=== PATIENT | female | born 1945 | race Caucasian/White ===

== ENCOUNTER 2022-11-01 09:51 | Emergency (ER) | payer MEDICARE, MEDICAID, SELFPAY ==
[2022-11-01 09:52] VITALS: PULSE 84; RESP 14; TEMP 35.8; O2SAT 95
[2022-11-01 09:55] VITALS: BP 136/69
--- NOTE | 2022-11-01 10:28 | RAD_ITS ---
STUDY: X-RAY CHEST REASON FOR EXAM: Female, 77 years old. Chest pain TECHNIQUE: Single AP portable view of the chest. COMPARISON: None. FINDINGS: EKG electrodes are seen. The lungs are clear and expanded. There is no demonstrated pleural abnormality. Normal size heart. Normal mediastinum and aisha. Normal visualized pulmonary arteries. There is atherosclerotic calcification of the aortic arch with tortuosity. There are degenerative changes of the visualized thoracic spine. Normal visualized ribs, clavicles, and shoulders. There is no demonstrated abnormality of the visualized soft tissue structures of the upper abdomen. RAD/Chest 1 View (Portable) IMPRESSION: No acute abnormality is seen. Electronically Signed: Camilo Broussard MD at 11:00 EDT ,
[2022-11-01 10:29] LABS: Absolute Lymphocyte Count 1.27 X10^3/uL (0.83-4.51); Absolute Neutrophil Count 3.9 X10^3/uL (2.0-7.7); Basophil# 0.05 X10^3/uL; Basophil% 0.8 % (0-1); Eosinophil# 0.43 X10^3/uL; Eosinophils% 7.1 % (0-5); Hematocrit 42.9 % (37-47); Hemoglobin 13.7 g/dL (12.0-15.0); Lymphocyte # 1.27 X10^3/ul (0.83-4.51); Lymphocyte % 20.9 % (19-41); Mean Corp Hgb Conc 31.9 g/dL (32-36); Mean Corpuscular Hgb 28.3 pg (27.0-32.0); Mean Corpuscular Volume 88.6 fL (81-99); Mean Platelet Vol. 9.1 fl (6.2-12.0); Monocyte# 0.48 X10^3/uL; Monocyte% 7.9 % (0-10); NRBC Flagged by Analyzer 0 % (0-5); Neutrophil # 3.85 X10^3/uL (2.7-7.7); Neutrophil % 63.1 % (47-70); Platelet Count 266 K/mm3 (150-450); RBC Distribution Width SD 48.7 fl (35.1-43.9); Red Blood Count 4.84 M/mm3 (4.2-5.4); White Blood Count 6.1 K/mm3 (4.4-11.0)
--- NOTE | 2022-11-01 10:30 | EKG12_ITS ---
Test Reason : Blood Pressure : / mmHG Vent. Rate : 068 BPM Atrial Rate : 068 BPM P-R Int : 164 ms QRS Dur : 078 ms QT Int : 412 ms P-R-T Axes : 002 068 050 degrees QTc Int : 438 ms Normal sinus rhythm Low voltage QRS Borderline ECG Confirmed by SOLANGE ALVARADO, HONEY ([id number]), videotape editor IVETH SAUCEDO ([id number]) on 11/03/2022 1:08:40 PM Referred By: MAGNOLIA Confirmed By:CALISTA NARVAEZ MD
[2022-11-01 10:51] LABS: Anion Gap 6 (5-15); BUN 18 mg/dL (7-18); BUN/Creat Ratio 12.2 RATIO (10-20); Calcium,Total 8.9 mg/dL (8.5-10.1); Chloride 111 mmol/L (98-107); Creatinine, Serum 1.47 mg/dL (0.55-1.02); EST Glomerular Filtration Rate 37 mL/min (>60); Est Glom Filt Rate - Afr Amer 44 mL/min (>60); Glucose 163 mg/dL (74-106); Potassium 3.6 mmol/L (3.5-5.1); Sodium Level 141 mmol/L (136-145); Troponin-I HS (w/2H Reflex) 7 pg/mL (3.0-54.0)
[2022-11-01 12:28] LABS: Reflex Troponin-HS? (from REC) Y
[2022-11-01 13:03] LABS: Troponin-I HS 11 pg/mL (3.0-54.0)
[2022-11-01 13:18] VITALS: BP 130/75; PULSE 63; RESP 18; O2SAT 98; BMI 62.1
--- NOTE | 2022-11-01 13:37 | EDS_ITS ---
HPI History of Present Illness Chief Complaint: Chest Pain Informant: patient Narrative Narrative: Patient is a 77-year-old female with history of hypothyroid and hypertension presenting with chest pain. Patient states she was eating breakfast when she felt a discomfort in her chest. She states that she thought she swallowed wrong but did not actually swallow anything that she thinks got stuck. She checked her watch which showed her heart rate was 102 which is high for her. This concerned her. She then checked her blood pressure which was elevated at 150/82. She states she just did not feel right was uncomfortable in her left jaw. She took 9 x 81 mg aspirin and decided call 911. She notes she felt some fatigue. She states her symptoms have since resolved and she is feeling better. She notes she also had a recent cardiac work-up including stress test and echo as she is been having these vague near syncope episodes. Her work-up was normal. She denies any other complaints or concerns at this time. She denies any shortness of breath or difficulty breathing. Denies any nausea or vomiting. She denies any new swelling of her legs. [facility] Medical History Hypertension Home Medications levothyroxine 100 mcg tablet (Euthyrox) 100 mcg PO DAILY 11/01/22 [History Last Taken Unknown] losartan 100 mg tablet 100 mg PO DAILY 11/01/22 [History Last Taken Unknown] zinc 25 mg tablet 25 mg PO DAILY 11/01/22 [History Last Taken Unknown] Allergy/AdvReac Type Severity Reaction Status Date / Time coconut Allergy Severe Anaphylaxis Verified 11/01/22 10:02 erythromycin base Allergy Intermediate Rash Verified 11/01/22 10:02 hay Allergy Mild headache Uncoded 11/01/22 10:02 Social History Smoking Status: Never smoker ROS ROS ED Constitutional Constitutional ED: Denies chills or fever(s) Eyes Eyes: Denies blurry vision ENT ENT ED: Denies rhinorrhea or sore throat Cardiovascular Cardiovascular: Reports as per HPI and chest pain Gastrointestinal Gastrointestinal: Denies abdominal pain, nausea or vomiting Musculoskeletal Musculoskeletal: Denies arthralgias or myalgias Integumentary Denies rash Neurologic Neurologic: Denies headache(s), paresthesias or weakness Psychiatric Psychiatric: Reports anxiety; Denies depression Hematologic/Lymphatic Hematologic/Lymphatic: Denies easy bleeding or easy bruising EXAM Physical Exam Const Vital Signs: 11/01/22 09:52 11/01/22 09:55 11/01/22 10:25 Temperature 96.4 F L Temperature Source Temporal Pulse Rate 84 Respiratory Rate 14 Blood Pressure 136/69 H Blood Pressure Mean 91 Pulse Ox 95 Oxygen Delivery Method Room Air Room Air 11/01/22 13:18 11/01/22 13:51 Temperature Temperature Source Pulse Rate 63 88 Respiratory Rate 18 16 Blood Pressure 130/75 H 130/76 H Blood Pressure Mean 93 Pulse Ox 98 Oxygen Delivery Method Room Air Positive well nourished, well developed and obese General Appearance ED: well developed and NAD Nutritional Appearance: obese HEENT Reports moist mucous membranes Eyes PERRL Neck supple and no JVD Chest Wall inspection of chest normal and palpation of chest normal Resp normal respiratory effort and clear to auscultation bilaterally Cardio regular rate, regular rhythm and no murmurs Peripheral Pulses: pulses 2+ throughout GI normal to inspection, nondistended, normoactive bowel sounds and soft to palpation Extremity normal to inspection General Extremety ED: Negative for edema General Extremity: Negative for edema Neuro oriented x3 Motor Exam: Negative for general weakness Psych mental status grossly normal Mood & Affect: anxious Skin no rashes or lesions noted Heart Score History: Slightly/Non-Suspicious ECG: Normal Age: >/= 65 years Risk Factors: 1 or 2 Risk Factors Troponin: </= Normal Limit Score: 3 MDM MDM MDM Narrative Medical decision making narrative: Patient is evaluated for an episode of chest pain. EMS report is reviewed. Patient normal vital signs for EMS. Her symptoms have resolved in the emergency room. Her vital signs are normal. Cardiac work-up including chest x-ray (1 view reviewed by myself) which was normal, high since he troponin x2 as well as EKG are all unremarkable and not consistent with ACS. Overall patient is well-appearing. Exam does not sound like pneumonia or pulmonary emboli and I do not think work-up for that is indicated. CBC is normal. No signs of anemia consistent with-heart failure/symptomatic anemia. Patient is clinically does not appear fluid overloaded and I do not think this is a heart failure picture. She does have an elevation of her creatinine of 1.47 however this appears to be baseline and her creatinine in September with her PCP was 1.5. In addition patient had a normal stress test on 10/13 as well as largely normal echo with LVEF of 84%. She did have some aortic stenosis on that echo. I feel the patient can be safely discharged home with outpatient follow-up. She is agreeable this plan of care. Is given return precautions. Discharged home in improved and stable condition. History & Record Review Additional record(s) reviewed:: Prior outpatient record (Prior work-up and labs on patient's MyChart) Lab Data Labs: Laboratory Results - last 24 hr 11/01/22 11/01/22 10:20 12:35 WBC 6.1 RBC 4.84 Hgb 13.7 Hct 42.9 MCV 88.6 MCH 28.3 MCHC 31.9 L RDW Std Deviation 48.7 H RDW Coeff of Abdiaziz 15.0 H Plt Count 266 MPV 9.1 Immature Gran % (Auto) 0.200 Neut % (Auto) 63.1 Lymph % (Auto) 20.9 [place] % (Auto) 7.9 Eos % (Auto) 7.1 H Baso % (Auto) 0.8 Absolute Neuts (auto) 3.9 Absolute Lymphs (auto) 1.27 Nucleated RBC % 0 Sodium 141 Potassium 3.6 Chloride 111 H Carbon Dioxide 24.0 Anion Gap 6 BUN 18 Creatinine 1.47 H Est GFR (MDRD) Af Amer 44 L Est GFR (MDRD) Non-Af 37 L BUN/Creatinine Ratio 12.2 Glucose 163 H Calcium 8.9 Troponin I High Sens 7 11 Radiography Diagnostic Testing: Clinical Impression(s) from Imaging Studies Chest X-Ray 11/01/22 10:28 IMPRESSION: No acute abnormality is seen. Electronically Signed: Camilo Broussard MD at 11:00 EDT , Rhythm Strip Rhythm Strip: Sinus Rhythm Rate: 68 Ectopy: None EKG Initial EKG: Attestation: I personally reviewed and interpreted this EKG as follows: Interpretation: Sinus Rhythm Comments: Normal sinus rhythm at a rate of 68 bpm Normal axis Normal intervals Normal ST segments Discharge Plan Triage Chief Complaint: Chest Pain ED Provider: Radha Hooper Dx/Rx/DC Orders Clinical Impression: Chest pain of unknown etiology Instructions: ED Chest Pain, Uncertain Cause Prescriptions: No Action losartan 100 mg tablet 100 mg PO DAILY levothyroxine [Euthyrox] 100 mcg tablet 100 mcg PO DAILY zinc 25 mg tablet 25 mg PO DAILY Primary Care Provider: Katherine Jhaveri NP Referrals: Katherine Jhaveri [employer] GUARD, [employer] GUARD-C [Primary Care Provider] - Activity Restrictions/Additional Instructions: Your work-up for your chest pain today was largely normal. The exact cause is not clear but at this time I do think it safe for you to go home. Please continue to follow-up outpatient with your primary care doctor. Disposition Disposition: Home, Self Care Discharge Date/Time: 11/01/22 13:51
[2022-11-01 13:51] VITALS: BP 130/76; PULSE 88; RESP 16
== END 2022-11-01 13:51 | disposition home or self-care (01) ==
PROVIDERS: Emergency Provider Emergency Medicine; PCP Internal Medicine; Visit Provider Emergency Medicine
DX: R07.9 Chest pain, unspecified (principal); I35.0 Nonrheumatic aortic (valve) stenosis; I10 Essential (primary) hypertension; E03.9 Hypothyroidism, unspecified; E66.9 Obesity, unspecified; Z79.890 Hormone replacement therapy; Z79.899 Other long term (current) drug therapy
CPT/HCPCS: 71045; 80048; 84484; 85025; 93005; 99285; A4216

== ENCOUNTER 2024-05-21 17:52 | Emergency (ER) | payer MEDICARE, MEDICAID, SELFPAY ==
[2024-05-21 17:53] VITALS: BP 141/70; PULSE 62; RESP 22; TEMP 36.6; O2SAT 97
[2024-05-21 20:15] VITALS: O2SAT 97
--- NOTE | 2024-05-21 20:15 | CT_ITS ---
PROCEDURE: CT abdomen and pelvis with IV contrast REASON FOR EXAM: Pain, trauma TECHNIQUE: Multiple contiguous axial images through the abdomen and pelvis were obtained after the administration of intravenous contrast. Two-dimensional coronal and sagittal reformatted images were reconstructed. Low-dose imaging technique was utilized. COMPARISON: None. FINDINGS: Mild bibasilar scarring/atelectasis. Mild cardiomegaly. Liver, spleen, and adrenal glands are intact. Cholelithiasis without secondary signs of acute cholecystitis or biliary ductal dilation. Kidneys enhance symmetrically. No suspicious renal mass, calculi or hydronephrosis. Urinary bladder is intact. Distal colonic diverticulosis. No bowel obstruction or significant mesenteric inflammation. Subtle area of focal bowel wall thickening at the distal transverse colon (axial images 50-53, coronal image 50). Adjacent mildly enlarged presumed lymph node measuring up to 16 mm. Normal appendix. No pelvic free fluid. No free air. Calcified nonaneurysmal abdominal aorta. No other significant adenopathy. Superficial soft tissues are intact. No acute osseous abnormality. Multilevel degenerative changes of the spine. Mild bilateral hip osteoarthritis. CT/Abdomen/Pelvis W IV Cont ONLY IMPRESSION: 1. No acute traumatic sequelae. 2. Subtle area of focal colonic wall thickening at the distal transverse colon as above with a prominent adjacent mesenteric lymph node. Findings are concerning for underlying malignancy. Further assess ment with colonoscopy recommended. One or more dose reduction techniques were used (e.g., Automated exposure contr ol, adjustment of the mA and/or kV according to patient size, use of iterative reconstruction technique). Reading Location: [facility]
[2024-05-21] MEDS: Ondansetron 4 MG/2 ML Vial IV (20:28)
[2024-05-21] MEDS: 0.9% Normal Saline (1000mL) 1,000 ML 999 ML IV (20:28)
[2024-05-21] MEDS: Morphine 4 MG/ML Syringe IV (20:28)
[2024-05-21 20:33] VITALS: BP 175/94; PULSE 62; RESP 17; O2SAT 98
[2024-05-21 20:48] LABS: Anion Gap 6 (5-15); BUN 22 mg/dL (7-18); BUN/Creat Ratio 17.2 RATIO (10-20); Calcium,Total 9.6 mg/dL (8.5-10.1); Chloride 109 mmol/L (98-107); Creatinine, Serum 1.28 mg/dL (0.55-1.02); EST Glomerular Filtration Rate 43 mL/min (>60); Est Glom Filt Rate - Afr Amer 52 mL/min (>60); Glucose 107 mg/dL (74-106); Potassium 3.8 mmol/L (3.5-5.1); Sodium Level 143 mmol/L (136-145)
--- NOTE | 2024-05-21 21:31 | EX.ED.DYSGE1 ---
HPI History of Present Illness Chief Complaint: Fall Narrative Narrative: Patient is a 70-year-old female past medical history hypertension who presents to the emergency department chief complaint of back pain. Patient states that yesterday evening around 9:30 PM she was in her kitchen and noted the floorboards on even her sandal caught the floorboard causing her to fall. She says she did not get lightheaded she did not get short of breath denied chest pain no dizziness prior to the fall states that she simply tripped over the board. Patient notes that she was on the floor for about 2 hours and then was ultimately able to get up. Patient states that she is concerned she may have a urinary tract infection as well as she has frequent UTIs. Patient came in complaining of lower back pain. As well as right knee pain. States that she has been ambulating though. [facility] Medical History Hypertension Home Medications ?Medication ?Instructions ?Recorded ?Last Taken ?Type levothyroxine 100 mcg tablet 100 mcg PO DAILY 11/01/22 Unknown History (Euthyrox) losartan 100 mg tablet 100 mg PO DAILY 11/01/22 Unknown History zinc 25 mg tablet 25 mg PO DAILY 11/01/22 Unknown History cyclobenzaprine 5 mg tablet 5 mg PO TID PRN muscle spasm #20 05/21/24 Unknown Rx tabs lidocaine 5 % topical patch 1 patch topical DAILY #15 ea 05/21/24 Unknown Rx (Lidoderm) ondansetron 4 mg disintegrating 4 mg PO Q6H PRN nausea and 05/21/24 Unknown Rx tablet vomiting #30 tabs oxycodone-acetaminophen 5 mg-325 1 tab PO Q6H PRN pain 2 days #8 05/21/24 Unknown Rx mg tablet (Endocet) tabs sulfamethoxazole 800 1 tab PO BID 5 days #10 tabs 05/21/24 Unknown Rx mg-trimethoprim 160 mg tablet (Bactrim DS) Allergy/AdvReac Type Severity Reaction Status Date / Time coconut Allergy Severe Anaphylaxis Verified 05/21/24 17:53 erythromycin base Allergy Intermediate Rash Verified 05/21/24 17:53 Environmental Allergies: AdvReac Intermediate Other Verified 05/21/24 17:53 Uncoded Social History Smoking Status: Never smoker ROS ROS ED ROS Narrative Constitutional: Denies fevers, chills, headaches, lightness, dizziness Eyes: Denies change in vision double vision blurry vision Cardiovascular: Denies chest pain or palpitations Respiratory: Denies coughing wheezing shortness of breath Abdomen: Complains of some right lower abdominal sided discomfort from the fall denies nausea vomit diarrhea : States that she think she has UTI Neurological: Denies numbness, weakness, tingling Musculoskeletal: Denies back pain Skin: Denies rashes or lesions EXAM Physical Exam Narrative Exam Narrative: General: Patient lying in bed rest comfortably did not appear to be in acute distress Head: Atraumatic, normocephalic Eyes: PERRL bilaterally, EOMI bilaterally, no conjunctival injection noted Neck: Soft, supple, trachea midline Cardiovascular: Regular rate and rhythm no murmurs gallops rubs noted Respiratory: Clear to auscultation bilaterally Abdomen: Soft, nondistended, nontender to palpation, bowel sounds present x 4 Musculoskeletal: Patient had tenderness palpation the lower lumbar spine midline no step-offs or deformities noted to although bony prominences palpated and joints taken to full range of motion no pain elicited outside of mild right knee pain with attempted range of motion Extremities: DP pulses +2/4 in the bilateral lower extremities, radial pulses +2/4 in the bilateral lower extremities, +4/5 strength noted in the bilateral upper and lower extremities Neurological: Patient following commands and that she was at [facility] year is 2024. NIH of 0 GCS 15 Skin: Warm, dry, intact no rashes or lesions noted Const Vital Signs: 05/21/24 17:53 05/21/24 20:15 05/21/24 20:33 Temperature 97.8 F Temperature Source Temporal Pulse Rate 62 62 Respiratory Rate 22 H 17 Respiratory Effort Normal Non-Labored Respiratory Depth Normal Respiratory Pattern Normal Blood Pressure 141/70 H 175/94 H Blood Pressure Mean 93 121 Pulse Ox 97 97 98 Oxygen Delivery Method Room Air Room Air Room Air 05/21/24 22:00 Temperature Temperature Source Pulse Rate 60 Respiratory Rate 17 Respiratory Effort Respiratory Depth Respiratory Pattern Blood Pressure 150/78 H Blood Pressure Mean 102 Pulse Ox 98 Oxygen Delivery Method Room Air MDM MDM MDM Narrative Medical decision making narrative: Patient is a 78-year-old female who presented to the emergency department with a chief complaint of low back pain after a fall yesterday that was mechanical in nature. On the differential diagnose includes but not limited to compression fracture, musculoskeletal strain, retroperitoneal hemorrhage although I low suspicion for this as there is no ecchymosis or bruising noted on exam. Patient's BMP reviewed showed sodium normal at 143, potassium was 3.8, creatinine was noted to be 1.28 she has underlying chronic kidney disease according to previous blood draw, x-ray of her right knee reviewed FABIOLA by radiology showed no acute fracture or malalignment. She has severe tricompartmental osteoarthritis. Patient CT abdomen pelvis with IV contrast showed no acute traumatic sequelae there is a subtle area of focal colonic wall thickening at the distal transverse colon with a prominent adjacent mesenteric lymph node finding concerning for underlying malignancy recommend colonoscopy. I discussed the results with the patient she states that she has not had a colonoscopy in a significant mount time. I provided hardcopy of these results for the patient and advised them to take this to your primary care physician and I will also refer her to Dr. Garrido as well for scope. Patient does not want to wait on her urinalysis results she states that she knows that she has urinary tract infection and is requesting Bactrim. States that she will follow-up on the urine culture with her primary care physician in the outpatient setting. She is encouraged return for worsening symptoms or any concerns. She ambulated well here in the emergency department difficulty. Patient be given prescriptions for Bactrim, cyclobenzaprine, Zofran and Percocet. She is otherwise to use Lidoderm patch as well as rotate Tylenol and ibuprofen [id number] for mild to moderate pain. She is vies not operate anything under the influence of these medications such as narcotics. Daughter at bedside is also agreeable this plan all question concerns answered she is discharged home in stable condition. Lab Data Labs: Laboratory Results - last 24 hr 05/21/24 20:26 Sodium 143 Potassium 3.8 Chloride 109 H Carbon Dioxide 28.0 Anion Gap 6 BUN 22 H Creatinine 1.28 H Est GFR (MDRD) Af Amer 52 L Est GFR (MDRD) Non-Af 43 L BUN/Creatinine Ratio 17.2 Glucose 107 H Calcium 9.6 Radiography Diagnostic Testing: Clinical Impression(s) from Imaging Studies Abdomen/Pelvis CT 05/21/24 20:15 IMPRESSION: 1. No acute traumatic sequelae. 2. Subtle area of focal colonic wall thickening at the distal transverse colon as above with a prominent adjacent mesenteric lymph node. Findings are concerning for underlying malignancy. Further assessment with colonoscopy recommended. One or more dose reduction techniques were used (e.g., Automated exposure control, adjustment of the mA and/or kV according to patient size, use of iterative reconstruction technique). Reading Location: [facility] Knee X-Ray 05/21/24 21:35 IMPRESSION: Negative for acute fracture or malalignment. Small knee joint effusion. Severe tricompartmental osteoarthritis. Chondrocalcinosis. Reading Location: [facility] Discharge Plan Triage Chief Complaint: Fall ED Provider: Estuardo Zuñiga Dx/Rx/DC Orders Clinical Impression: Fall, Abnormal computed tomography of abdomen and pelvis, Low back pain Prescriptions: New lidocaine [Lidoderm] 5 % adhesive patch,medicated 1 patch topical DAILY Qty: 15 0RF Rx Instructions: leave on most painful area for up to 12 hrs oxycodone-acetaminophen [Endocet] 5-325 mg tablet 1 tab PO Q6H PRN (Reason: pain) 2 Days Qty: 8 0RF ondansetron 4 mg tablet,disintegrating 4 mg PO Q6H PRN (Reason: nausea and vomiting) Qty: 30 0RF sulfamethoxazole-trimethoprim [Bactrim DS] 800-160 mg tablet 1 tab PO BID 5 Days Qty: 10 0RF cyclobenzaprine 5 mg tablet 5 mg PO TID PRN (Reason: muscle spasm) Qty: 20 0RF No Action losartan 100 mg tablet 100 mg PO DAILY levothyroxine [Euthyrox] 100 mcg tablet 100 mcg PO DAILY zinc 25 mg tablet 25 mg PO DAILY Primary Care Provider: Katherine Jhaveri NP Referrals: Katherine Jhaveri NP, [employer] [Primary Care Provider] - Friend,DO Isaias [Med Staff - Active Staff] - Activity Restrictions/Additional Instructions: Follow-up with your primary care physician outpatient setting. Take prescriptions as prescribed do not operate anything under the influence of the narcotics or the muscle relaxer can make you sleepy. You should use these for severe pain and use the Lidoderm patch, Tylenol, ibuprofen rotating those [id number] every 3 hours for mild to moderate pain. Max dose Tylenol is 4000 mg max dose of ibuprofen is [address] finding that we discussed here in the emergency department with a concern for cancer to your primary care physician as well as try to follow-up with Dr. Garrido in the outpatient setting for colonoscopy. Return with worsening symptoms or concerns. Print Language: Luxembourgish Disposition Disposition: Home, Self Care
--- NOTE | 2024-05-21 21:35 | RAD_ITS ---
PROCEDURE: Right knee radiographs REASON FOR EXAM: Pain, trauma TECHNIQUE: Four views of the right knee COMPARISON: None FINDINGS: See impression RAD/Knee 4 or More Views IMPRESSION: Negative for acute fracture or malalignment. Small knee joint effusion. Sever e tricompartmental osteoarthritis. Chondrocalcinosis. Reading Location: [facility]
[2024-05-21 22:00] VITALS: BP 150/78; PULSE 60; RESP 17; O2SAT 98
[2024-05-21] MEDS: Orphenadrine 60 MG/2 ML Ampul 30 MG IV (22:21)
[2024-05-21 22:43] VITALS: BP 147/74; PULSE 65; RESP 17; TEMP 36.6; O2SAT 99
[2024-05-21 23:01] LABS: Mucous, Urine 0 SEEN /hpf (<or=2+)
[2024-05-21 23:06] LABS: Color, Urine Yellow (Yellow); Glucose, Dipstick Normal (Normal); Ketone-Dipstick Negative (Negative); Leukocyte Esterase-Dipstick 500 /ul (Negative); Nitrite-Dipstick Positive (Negative); Occult Blood-Urine 25 /ul (Negative); Protein-Dipstick 30 mg/dl (Negative); Specific Gravity, Urine 1.015 (1.002-1.030); Urine Bilirubin Dipstick Negative (Negative); Urine Clarity Sl. Cloudy (Clear); Urine Urobilinogen Normal (Normal)
[2024-05-21 23:23] LABS: Bacteria 2+ /hpf (None Seen); White Blood Cells >100 SEEN /hpf (0-5)
[2024-05-21 23:24] LABS: Red Blood Cells-Urine 0 SEEN /hpf (0-5); Squamous Epithelial Cells - UA 0-5 SEEN /hpf (5-10)
== END 2024-05-21 22:43 | disposition home or self-care (01) ==
PROVIDERS: Emergency Provider Emergency Medicine; PCP Internal Medicine; Visit Provider Emergency Medicine
DX: M54.50 Low back pain, unspecified (principal); W01.0XXA Fall on same level from slipping, tripping and stumbling without subsequent striking against object, initial encounter; R93.5 Abnormal findings on diagnostic imaging of other abdominal regions, including retroperitoneum; R93.41 Abnormal radiologic findings on diagnostic imaging of renal pelvis, ureter, or bladder
CPT/HCPCS: 73564; 74177; 80048; 81001; 96361; 96374; 96375; 99283; Q9967; J2405

== ENCOUNTER 2024-07-25 11:58 | Day surgery (SDC) | payer MEDICARE, MEDICAID, SELFPAY ==
--- NOTE | 2024-07-23 10:56 | PAT.ANESEVAL ---
Pre-Assessment Diagnosis/Proposed Procedure Planned Operative Procedure(s): COLONOSCOPY Anesthesia History Anesthesia History - meat smoker: Anesthesia History - meat smoker Hx Hospitalization No 07/22/24 14:57 Any Problems With Anesthesia No 07/22/24 14:57 Cholinesterase deficiency No 07/22/24 14:57 You/Your Family Experience No 07/22/24 14:57 fever (hyperthermia) with Relationship Recent Exposure to Contagious Disease Does patient have nerve No 07/22/24 14:57 stimulator Patient instructed to have device shut off --Does patient have Pacemaker or ICD? When Was Last Pacemaker Check QUESTION #4 FULL TEXT: You/Your Family Experience fever (hyperthermia) with Anesthesia Last Oral Intake Last Oral intake: Last Oral Intake NPO since Meds taken in AM with sips of water? Meds patient instructed to take am of surgery PONV PONV - meat smoker: PONV - meat smoker Female Yes 07/22/24 14:57 HX of Motion Sickness No 07/22/24 14:57 HX of N/V After Surgery No 07/22/24 14:57 Non-Smoker Yes 07/22/24 14:57 Duration of Surgery greater No 07/22/24 14:57 than 60 minutes Number of Risk Factors 2 07/22/24 14:57 PONV Score Moderate Risk 07/22/24 14:57 Height & Weight Height & Weight: Anesthesia: Height & Weight Height 5 ft 3 in 05/21/24 17:53 Respiratory Assessment Respiratory Assessment - meat smoker: Respiratory Tract Infection Hx - meat smoker Hx Respiratory Tract Infection No 07/22/24 14:57 STOP Sleep Apnea STOP Sleep Apnea - meat smoker: STOP Sleep Apnea - meat smoker Hx Hypertension Yes: NO MEDS AT THIS TIME 07/22/24 14:57 Hx Sleep Apnea No 07/22/24 14:57 CPAP BIPAP Do you snore loudly (louder No 07/22/24 14:57 than talking or can be heard Do you often feel tired/ No 07/22/24 14:57 fatigued/ sleepy during daytime? Has anyone observed you stop No 07/22/24 14:57 breathing during sleep? STOP Results Negative 07/22/24 14:57 QUESTION #5 FULL TEXT : Do you snore loudly (louder than talking or can be heard through closed doors)? 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 Specify any problems Hx of Preganancy in last 3 No 07/22/24 14:57 Months Nurse Filling Out Transfusion VLEHMAN 07/22/24 14:57 & Questions: Date: 07/22/24 07/22/24 14:57 Time: 15:01 07/22/24 14:57 Patient unable to answer at this time (ie. confused, unrespo /Reproduction History /Reproductive History - meat smoker: /Reproductive Hx- meat smoker Hx Now Gestational Age (in weeks): EDC: Hx Hx Para Hx Section SAB PFSH Medical History (Updated 07/22/24 @ 15:10 by Roxane Kelly) Wears dentures Cancer Abrasion Thyroid disease Walker as ambulation aid Ambulates with cane Arthritis History of renal disease Bladder disease High cholesterol Back pain Non-smoker Asthma Chronic cough History of echocardiogram Cardiology follow-up encounter History of skin cancer Hypertension Home Medications ?Medication ?Instructions ?Recorded ?Last Taken ?Type levothyroxine 100 mcg tablet 100 mcg PO DAILY 11/01/22 Unknown History (Euthyrox) zinc 25 mg tablet 25 mg PO DAILY 11/01/22 Unknown History cyclobenzaprine 5 mg tablet 5 mg PO TID PRN muscle spasm #20 05/21/24 Unknown Rx tabs bisacodyl 5 mg tablet,delayed 5 mg PO ONCE #4 tabs 06/09/24 Unknown Rx release polyethylene glycol 3350 17 238 g PO ONCE #238 grams 06/09/24 Unknown Rx gram/dose oral powder cholecalciferol (vitamin D3) 25 3,000 unit PO DAILY 07/22/24 Unknown History mcg (1,000 unit) tablet (Vitamin D3) Allergy/AdvReac Type Severity Reaction Status Date / Time coconut Allergy Severe Anaphylaxis Verified 07/22/24 14:45 acetaminophen (From NyQuil) Allergy Intermediate Rash Verified 07/22/24 14:51 amlodipine Allergy Intermediate PT UNSURE Verified 07/22/24 14:51 OF REACTION chlorphentermine Allergy Intermediate Rash Verified 07/22/24 14:51 dextromethorphan (From Allergy Intermediate Rash Verified 07/22/24 14:51 NyQuil) doxylamine (From NyQuil) Allergy Intermediate Rash Verified 07/22/24 14:51 erythromycin base Allergy Intermediate Rash Verified 07/22/24 14:45 lisinopril Allergy Intermediate COUGH Verified 07/22/24 14:51 pseudoephedrine (From Allergy Intermediate Rash Verified 07/22/24 14:51 Sudafed) triamcinolone (From Nasacort) Allergy Intermediate CHEST PAIN Verified 07/22/24 14:51 Environmental Allergies: AdvReac Intermediate Other Verified 07/22/24 14:45 Uncoded Surgical History (Updated 07/22/24 @ 15:10 by Roxane Kelly) H/O cardiac radiofrequency ablation History of parathyroid surgery History of knee replacement procedure of left knee History of surgery on lower extremity History of hysterectomy History of tubal ligation Social History Smoking Status: Never smoker Audit: Pertinent Findings Pertinent Findings EKG Perinent findings: 11/01/2022. Normal sinus rhythm 68 bpm. Echo (EF%) pertinent findings: 04/11/2022. EF 61?5%. Mild aortic stenosis. Consult pertinent findings: Cardiology 04/11/2022. Hypertension. Primary hypertension. Well-controlled. Nonrheumatic aortic valve stenosis. Mild. Requiring yearly monitoring. Recommendation Anesthesia Recommendation Anesthesia recommendation: OPTIMIZED for anesthesia
[2024-07-25] VITALS (9 sets, daily range): BP systolic 76–130; BP diastolic 53–80; PULSE 67–72; RESP 14–18; TEMP 36.1–37.2; O2SAT 94–99; BMI 44.4
[2024-07-25] MEDS: Lactated Ringers 1,000 ML 15 ML IV (12:29)
--- NOTE | 2024-07-25 12:38 | PRE.ANES_ITS ---
ASA Classification* ASA Classification ASA Classification: 3 Assessment & Plan Anesthesia* Anesthesia Assessment Anesthesia Assessment: Discussed sedation and/or anesthesia options, risks, benefits, and alternatives with patient/parents/legal guardian/POA. Questions invited. The patient/parents/legal guardian/POA seems to understand and agrees to proceed with anesthesia plan. Reviewed the physical assessment, medical history, allergy history and patient home medications list prior to surgery/procedure/anesthetic and documented any changes. Performed airway and anesthesia risk assessments. Anesthesia Type Anesthesia Type: MAC History Source History Obtained from:: Patient and Chart Anesthesia Focused Assessment* Temperature: 97.6 F Pulse Rate: 70 Blood Pressure: 130/80 Respiratory Rate: 18 Pulse Ox: 97 Oxygen Delivery Method: Room Air Airway Assessment Mouth opens: >3 cm Mallampati Score: I Teeth Condition: Dentures (upper and lower) Neck Range of motion (ROM): Full ROM Focused Labs Anesthesia Preop lab: CBC WBC 6.1 K/mm3 (4.4-11.0) 11/01/22 10:20 11/01/22 RBC 4.84 M/mm3 (4.2-5.4) 11/01/22 10:20 11/01/22 Hgb 13.7 g/dL (12.0-15.0) 11/01/22 10:20 11/01/22 Hct 42.9 % (37-47) 11/01/22 10:20 11/01/22 Plt Count 266 K/mm3 (150-450) 11/01/22 10:20 11/01/22 CHEMISTRY Potassium 3.8 mmol/L (3.5-5.1) 05/21/24 20:26 05/21/24 Sodium 143 mmol/L (136-145) 05/21/24 20:26 05/21/24 BUN 22 mg/dL (7-18) H 05/21/24 20:26 05/21/24 Creatinine 1.28 mg/dL (0.55-1.02) H 05/21/24 20:26 Glucose 107 mg/dL (74-106) H 05/21/24 20:26 05/21/24 COAG Pre-Assessment Diagnosis/Proposed Procedure Planned Operative Procedure(s): COLONOSCOPY Anesthesia History Anesthesia History - exhibit specialist: Anesthesia History - exhibit specialist Hx Hospitalization No 07/22/24 14:57 Any Problems With Anesthesia No 07/22/24 14:57 Cholinesterase deficiency No 07/22/24 14:57 You/Your Family Experience No 07/22/24 14:57 fever (hyperthermia) with Relationship Recent Exposure to Contagious No 07/25/24 12:30 Disease Does patient have nerve No 07/22/24 14:57 stimulator Patient instructed to have device shut off --Does patient have Pacemaker No 07/25/24 12:30 or ICD? When Was Last Pacemaker Check QUESTION #4 FULL TEXT: You/Your Family Experience fever (hyperthermia) with Anesthesia Last Oral Intake Last Oral intake: Last Oral Intake NPO since 05:00 07/25/24 12:30 Meds taken in AM with sips of No 07/25/24 12:30 water? Meds patient instructed to take am of surgery PONV PONV - exhibit specialist: PONV - exhibit specialist Female Yes 07/22/24 14:57 HX of Motion Sickness No 07/22/24 14:57 HX of N/V After Surgery No 07/22/24 14:57 Non-Smoker Yes 07/22/24 14:57 Duration of Surgery greater No 07/22/24 14:57 than 60 minutes Number of Risk Factors 2 07/22/24 14:57 PONV Score Moderate Risk 07/22/24 14:57 Height & Weight Height & Weight: Anesthesia: Height & Weight Height 5 ft 2 in 07/25/24 12:30 Weight: 110.2 kg 07/25/24 12:30 Body Mass Index (BMI) 44.4 07/25/24 12:30 Respiratory Assessment Respiratory Assessment - exhibit specialist: Respiratory Tract Infection Hx - exhibit specialist Hx Respiratory Tract Infection No 07/22/24 14:57 STOP Sleep Apnea STOP Sleep Apnea - exhibit specialist: STOP Sleep Apnea - exhibit specialist Hx Hypertension Yes: NO MEDS AT THIS TIME 07/22/24 14:57 Hx Sleep Apnea No 07/22/24 14:57 CPAP BIPAP Do you snore loudly (louder No 07/22/24 14:57 than talking or can be heard Do you often feel tired/ No 07/22/24 14:57 fatigued/ sleepy during daytime? Has anyone observed you stop No 07/22/24 14:57 breathing during sleep? STOP Results Negative 07/22/24 14:57 QUESTION #5 FULL TEXT : Do you snore loudly (louder than talking or can be heard through closed doors)? Tobacco Use History Tobacco Use History - exhibit specialist: Tobacco Use History - exhibit specialist Tobacco Use Smoking Status Never smoker 07/22/24 14:57 Hx Tobacco Use No 07/22/24 14:57 Years Smoking Packs Smoked per Day Smoking Cessation Date was within the last 15 years Hx Smoking Cessation Date Hx Smoking Cessation Counseling Hematologic Medial History Hematologic Hx - exhibit specialist: Hematologic Medical Hx - sales rep Hx of Blood Transfusion No 07/22/24 14:57 Hx of Transfusion in last 3 No 07/22/24 14:57 Months Date of Last Transfusion (if within last 3 months) Ever experience any problems No 07/22/24 14:57 with transfusion(s)? Specify any problems Hx of Preganancy in last 3 No 07/22/24 14:57 Months Nurse Filling Out Transfusion VLEHPIONEER 07/22/24 14:57 & Questions: Date: 07/22/24 07/22/24 14:57 Time: 15:01 07/22/24 14:57 Patient unable to answer at this time (ie. confused, unrespo /Reproduction History /Reproductive History - exhibit specialist: /Reproductive Hx- exhibit specialist Hx Now Gestational Age (in weeks): EDC: Hx Hx Para Hx Section SAB Active Medications Active Medications: Current Medications Generic Name Dose Route Start Last Admin Trade Name Freq PRN Reason Stop Dose Admin Lactated Ringer's 1,000 mls @ 15 mls/hr 07/25/24 12:15 07/25/24 12:29 IV 15 mls/hr .Q48H JAC Administration PFSH Medical History Wears dentures Cancer Abrasion Thyroid disease Walker as ambulation aid Ambulates with cane Arthritis History of renal disease Bladder disease High cholesterol Back pain Non-smoker Asthma Chronic cough History of echocardiogram Cardiology follow-up encounter History of skin cancer Hypertension Home Medications ?Medication ?Instructions ?Recorded ?Last Taken ?Type levothyroxine 100 mcg tablet 100 mcg PO DAILY 11/01/22 07/24/24 History (Euthyrox) zinc 25 mg tablet 25 mg PO DAILY 11/01/22 04/2 07/25 History cyclobenzaprine 5 mg tablet 5 mg PO TID PRN muscle spa sm #20 05/21/24 Unknown Rx tabs bisacodyl 5 mg tablet,delayed 5 mg PO ONCE #4 tabs 01/2407/24/24 Rx release polyethylene glycol 3350 17 238 g PO ONCE #238 grams 0 06/09/24 07/24/24 Rx gram/dose oral powder cholecalciferol (vitamin D3) 25 3,000 unit PO DAILY 07/24/24 History mcg (1,000 unit) tablet (Vitamin D3) Allergy/AdvReac Type Severity Reaction Status Date / Time coconut Allergy Severe Anaphylaxis Verified 07/25/24 12:28 acetaminophen (From NyQuil) Allergy Intermediate Rash Verified 07/25/24 12:28 amlodipine Allergy Intermediate PT UNSURE Verified 07/25/24 12:28 OF REACTION chlorphentermine Allergy Intermediate Rash Verified 07/25/24 12:28 dextromethorphan (From Allergy Intermediate Rash Verified 07/25/24 12:28 NyQuil) doxylamine (From NyQuil) Allergy Intermediate Rash Verified 07/25/24 12:28 erythromycin base Allergy Intermediate Rash Verified 07/25/24 12:28 lisinopril Allergy Intermediate COUGH Verified 07/25/24 12:28 pseudoephedrine (From Allergy Intermediate Rash Verified 07/25/24 12:28 Sudafed) triamcinolone (From Nasacort) Allergy Intermediate CHEST PAIN Verified 07/25/24 12:28 Environmental Allergies: AdvReac Intermediate Other Verified 07/25/24 12:28 Uncoded Surgical History H/O cardiac radiofrequency ablation History of parathyroid surgery History of knee replacement procedure of left knee History of surgery on lower extremity History of hysterectomy History of tubal ligation Social History Smoking Status: Never smoker Review of Systems (Anesthesia) ROS Narrative System reviewed and no additional complaints, except as documented.
--- NOTE | 2024-07-25 13:00 | COLBX_PTH ---
PATIENT: DAVIDA LEONARD LOC: [facility] U#:[id number] AGE/SX: 79/F ROOM: RE07/25/[address]: Dr. Isaias Garrido DO : 1945 BED: DIS: 07/25/2024 SPEC #: [id number] RECD: 07/25/24 16:24 STATUS: JACKI REMer #: [id number] DOUG: 07/25/24 13:[address]: Isaias Garrido DEPT: SURGICAL PATHOLOGY RECD BY: Jordyn Duncan ENTERED: 07/28/24 07:14 SP TYPE: COLON BX OTHR DR: Katherine Jhaveri, SKYDIVING INSTRUCTOR-C Tissues: A - Ascending colon B - Cecum, NOS C - Sigmoid colon biopsy D - COLON BIOPSY Procedures: Immunohistochemical Stains Surgery Specimen Level IV IHC Stain ADDITIONAL HEADER OPERATION: Colonoscopy and polypectomy and biopsy of mass, tattoo endoscopy PRE-OP DIAGNOSIS: Abnormal CT scan TISSUE SUBMITTED: A- Ascending colon polyp, B- Cecal polyp, C- Sigmoid colon polyp, D- Splenic flexure mass MICROSCOPIC DIAGNOSIS A. Ascending colon, polyp, biopsy: Tubular adenoma. B. Colon, cecum, polyp, biopsy: Tubulovillous adenoma, multiple fragments. C. Sigmoid colon, polyp, biopsy: Tubulovillous adenoma, multiple fragments. D. Colon, splenic flexure, mass, biopsy: At least intramucosal adenocarcinoma. Cannot rule out invasion - see note. Note: IHC for p53 is wildtype. The Ki67 proliferative index is focally increased. If this biopsy represents only a portion of a larger mass lesion, the findings may not be agency sales representative. Recommend correlation with clinical and endoscopic findings. MICROSCOPIC DESCRIPTION Slides are reviewed. All matched controls reacted appropriately. These tests were developed and their performance characteristics determined by [facility]. They may not have been cleared or approved by the U.[place]. Food and Drug Administration. The FDA has determined that such clearance or approval is not necessary.? The above immunohistochemical/dualISH?markers are ordered and reviewed by the Pathologist. GROSS DESCRIPTION A. Received in formalin in a container labeled with the patient's name, date of , and ascending colon polyp is a 0.4 x 0.3 x 0.2 cm fragment of yañez-pink mucosal tissue. Submitted in toto in A1. B. Received in formalin in a container labeled with the patient's name, date of , and cecal polyp is a yañez-pink and polypoid piece of mucosal tissue measuring 1.2 x 1.2 x 0.9 cm. The margin is inked black and it is serially sectioned to reveal yañez-pink and friable surfaces. Submitted entirely in B1. C. Received in formalin in a container labeled with the patient's name, date of , and sigmoid colon polyp are multiple yañez-pink fragments of mucosal tissue measuring 1.0 x 0.6 x 0.4 cm in aggregate. Submitted in toto in C1. D. Received in formalin in a container labeled with the patient's name, date of , and splenic flexure mass are multiple yañez-pink fragments of soft tissue measuring 1.3 x 0.7 x 0.3 cm in aggregate. Submitted in toto in D1. [facility] 07-28-2024 CPT:[id number] ADDENDUM ADDENDUM ADDENDUM ADDENDUM ADDENDUM ADDENDUM ADDENDUM ADDENDUM ADDENDUM ADDENDUM ADDENDUM ADDENDUM ADDENDUM ADDENDUM ADDENDUM ADDENDUM 09/10/2024 09:23 ADDENDUM 09/10/2024 09:23 ADDENDUM 09/10/2024 09:23 ADDENDUM 09/10/2024 09:23 ADDENDUM 09/10/2024 09:23 This addendum is added to incorporate an outside pathology consultation report. The case was examined at [facility] by Dr. Landry (#[id number]) and the following diagnosis was rendered. A. Ascending colon, polyp, biopsy: Tubular adenoma. B. Cecum colon, polyp, biopsy: Tubulovillous adenoma. C. Sigmoid colon, polyp, biopsy: Tubular adenoma. D. Splenic flexure colon, mass, biopsy: High grade dysplasia / intramucosal adenocarcinoma. Please see complete above mentioned consultation report in EMR
--- NOTE | 2024-07-25 13:32 | PCM.HP.STD ---
HPI - General General Date of Admission: 07/25/24 Date of Service: 07/25/24 HPI Narrative DAVIDA LEONARD, is a 79 F who presentsBETH HORACIO, is a 78 F who presents to the office today for initial consult. abd/pelvis CT 05.21.24 1. No acute traumatic sequelae. 2. Subtle area of focal colonic wall thickening at the distal transverse colon as above with a prominent adjacent mesenteric lymph node. Findings are concerning for underlying malignancy. Further assessment with colonoscopy recommended. OV 06.02.24 pt reports that she is here following up after CT scan, recommended colonoscopy. Pt reports her last colonoscopy was 20 years ago. States she is having some mild constipation from the antibiotics she is on for her current UTI. [facility] Medical History Wears dentures Cancer Abrasion Thyroid disease Walker as ambulation aid Ambulates with cane Arthritis History of renal disease Bladder disease High cholesterol Back pain Non-smoker Asthma Chronic cough History of echocardiogram Cardiology follow-up encounter History of skin cancer Hypertension Home Medications ?Medication ?Instructions ?Recorded ?Last Taken ?Type levothyroxine 100 mcg tablet 100 mcg PO DAILY 11/01/22 07/24/24 History (Euthyrox) zinc 25 mg tablet 25 mg PO DAILY 11/01/22 07/24/24 History cyclobenzaprine 5 mg tablet 5 mg PO TID PRN muscle spasm #20 05/21/24 Unknown Rx tabs bisacodyl 5 mg tablet,delayed 5 mg PO ONCE #4 tabs 06/09/24 07/24/24 Rx release polyethylene glycol 3350 17 238 g PO ONCE #238 grams 06/09/24 07/24/24 Rx gram/dose oral powder cholecalciferol (vitamin D3) 25 3,000 unit PO DAILY 07/22/24 07/24/24 History mcg (1,000 unit) tablet (Vitamin D3) Allergy/AdvReac Type Severity Reaction Status Date / Time coconut Allergy Severe Anaphylaxis Verified 07/25/24 12:28 acetaminophen (From NyQuil) Allergy Intermediate Rash Verified 07/25/24 12:28 amlodipine Allergy Intermediate PT UNSURE Verified 07/25/24 12:28 OF REACTION chlorphentermine Allergy Intermediate Rash Verified 07/25/24 12:28 dextromethorphan (From Allergy Intermediate Rash Verified 07/25/24 12:28 NyQuil) doxylamine (From NyQuil) Allergy Intermediate Rash Verified 07/25/24 12:28 erythromycin base Allergy Intermediate Rash Verified 07/25/24 12:28 lisinopril Allergy Intermediate COUGH Verified 07/25/24 12:28 pseudoephedrine (From Allergy Intermediate Rash Verified 07/25/24 12:28 Sudafed) triamcinolone (From Nasacort) Allergy Intermediate CHEST PAIN Verified 07/25/24 12:28 Environmental Allergies: AdvReac Intermediate Other Verified 07/25/24 12:28 Uncoded Surgical History H/O cardiac radiofrequency ablation History of parathyroid surgery History of knee replacement procedure of left knee History of surgery on lower extremity History of hysterectomy History of tubal ligation Social History Smoking Status: Never smoker ROS Constitutional Constitutional: Denies fatigue, fever(s), poor appetite, weight gain or weight loss Gastrointestinal Gastrointestinal: Denies belching, bloating, change in bowel habits, change in stool character, chewing difficulty, coffee ground emesis, constipation, cramping, diarrhea, dyspepsia, dysphagia, early satiety, excessive flatus, fecal incontinence, heartburn, hematemesis, hematochezia, hemorrhoids, loose stools, melena, nausea, odynophagia, rectal bleeding, tenesmus, vomiting or weight changes Vital Signs Vital Signs Vital Signs: 07/25/24 12:30 07/25/24 12:30 07/25/24 12:47 Temperature 97.6 F L 97.6 F L Temperature Source Temporal Pulse Rate 70 70 Respiratory Rate 18 18 Respiratory Pattern Normal Blood Pressure 130/80 H 130/80 H Blood Pressure Mean 96 Blood Pressure Source Monitor Blood Pressure Position Semi-Fowlers Blood Pressure Location Right Forearm Pulse Ox 97 97 Oxygen Delivery Method Room Air Room Air Weight Weight: 242 lb 15.19 oz Body Mass Index (BMI) 44.4 Physical Exam Const alert, oriented x3, no apparent distress and healthy appearing General Appearance: cooperative GI normal to inspection, nondistended, normoactive bowel sounds, soft to palpation, non-tender and non-distended Percussion: normal to percussion Rectal Exam: deferred Assessment & Plan Assessment/Plan (1) Abnormal computed tomography angiography (CTA) of abdomen and pelvis: PLAN: Assessment and Plan Assessment and Plan (1) Abnormal computed tomography angiography (CTA) of abdomen and pelvis: Status: Acute Plan: 70-year-old female past medical history hypertension who presents to the emergency department chief complaint of back pain. She fell in her kitchen. She did not pass out. She did not fall on her head. Evaluation in the ED she was discovered to have thickening in the proximal colon with associated left note. She had a colonoscopy approximately 20 years ago. Her weight has been stable. She has been not having any lower GI bleeding, diarrhea or change in bowel habits. She has no family history of colon malignancy. 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 Also gives diagnosis of exclusion of malignancy. She should undergo colonoscopy to evaluate her lower GI tract. She was explained alternatives, risk, benefits being understanding bleeding, infection, sepsis, perforation, need emergent and . She will have an ASA of 3.
--- NOTE | 2024-07-25 14:21 | PCM.POST.ANE ---
Anesthesia: Postop Eval I Current Vital Signs Temperature: 97 F Pulse Rate: 67 Blood Pressure: 106/58 Respiratory Rate: 16 Pulse Ox: 95 Oxygen Delivery Method: Room Air Assessment Airway patent: Yes Spontaneous unlabored respirations: Yes Mental status: Awake and Calm nausea: No Vomiting: No Anesthesia Complication: No Fluid Hydration Crystalloid volume administer (ml): 500 Total IV fluid infused: 500 Progress Note Anesthesia document: Postop Eval 1 completed: Yes
--- NOTE | 2024-07-25 14:38 | OP.CCLET_ITS ---
07/25/2024 Katherine Jhaveri Np, Binding Folder Machine-c Re : Colonoscopy procedure for Juanita Rebolledo Cricket Jhaveri This procedure was performed on Thursday, July 25, 2024. My impressions and recommendations are as follows: Impressions : - Two 1 to 2 mm polyps in the sigmoid colon and in the cecum, removed with a cold snare. Resected and retrieved. - One 5 mm polyp in the ascending colon, removed with a jumbo cold forceps. Resected and retrieved. 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 Biopsied. Tattooed. - Diverticulosis in the recto-sigmoid colon, in the sigmoid colon and in the descending colon. Recommendations : - Discharge patient to home. - Resume previous diet. - Continue present medications. - Await pathology results. - Repeat colonoscopy for surveillance based on pathology results. My findings are described in the full procedure note, which is enclosed. If I can be of further assistance, please feel free to contact me at . Sincerely, Isaias Garrido DO 07/25/2024 2:37:34 PM This report has been signed electronically.
--- NOTE | 2024-07-25 14:38 | OP.COLON_ITS ---
Patient Name: Juanita Rebolledo Procedure Date: 07/25/2024 1:43 PM Date of : 1945 Age: 79 Procedure: Colonoscopy Indications: Abnormal CT of the GI tract Providers: Isaias Garrido DO Referring MD: Katherine Jhaveri Pellet Mill Operator, Pellet Mill Operator-c Medicines: Monitored Anesthesia Care Patient Profile: This is a 79 year old female. Refer to note in patient chart for documentation of history and physical. Last Colonoscopy: several years ago. Complications: No immediate complications. Procedure: Pre-Anesthesia Assessment: - Prior to the procedure, a History and Physical was performed, and patient medications and allergies were reviewed. The patient is competent. The risks and benefits of the procedure and the sedation options and risks were discussed with the patient. All questions were answered and informed consent was obtained. Patient identification and proposed procedure were verified by the physician in the pre-procedure area. Mental Status Examination: alert and oriented. Airway Examination: normal oropharyngeal airway and neck mobility. Respiratory Examination: clear to auscultation. CV Examination: normal. Prophylactic Antibiotics: The patient does not require prophylactic antibiotics. Prior Anticoagulants: The patient has taken no anticoagulant or antiplatelet agents. ASA Grade Assessment: II - A patient with mild systemic disease. After reviewing the risks and benefits, the patient was deemed in satisfactory condition to undergo the procedure. The anesthesia plan was to use monitored anesthesia care (MAC). Immediately prior to administration of medications, the patient was re-assessed for adequacy to receive sedatives. The heart rate, respiratory rate, oxygen saturations, blood pressure, adequacy of pulmonary ventilation, and response to care were monitored throughout the procedure. The physical status of the patient was re-assessed after the procedure. After I obtained informed consent, the scope was passed under direct vision. Throughout the procedure, the patient's blood pressure, pulse, and oxygen saturations were monitored continuously. The colonoscope was introduced through the anus and advanced to the cecum, identified by appendiceal orifice and ileocecal valve. The colonoscopy was performed without difficulty. The patient tolerated the procedure well. The quality of the bowel preparation was adequate. The ileocecal valve, appendiceal orifice, and rectum were photographed. Scope In: 1:52:40 PM Scope Withdrawal Time 0 hours 20 minutes 59 seconds Scope Out: 2:20:58 PM Total Procedure Duration Time 0 hours 28 minutes 18 seconds Findings: The perianal and digital rectal examinations were normal. Two sessile polyps were found in the sigmoid colon and cecum. The polyps were 1 to 2 mm in size. These polyps were removed with a cold snare. Resection and retrieval were complete. Verification of patient identification for the specimen was done. Estimated blood loss was minimal. A 5 mm polyp was found in the ascending colon. The polyp was sessile. The polyp was removed with a jumbo cold forceps. Resection and retrieval were complete. Verification of patient identification for the specimen was done. Estimated blood loss was minimal. An ulcerated non-obstructing large mass was found at the splenic flexure. The mass was non-circumferential. The mass measured four cm in length. In addition, its diameter measured eight mm. No bleeding was present. This was biopsied with a cold forceps for histology. Verification of patient identification for the specimen was done. Area was tattooed with an injection of 4 mL of Karina ink. Multiple small and large-mouthed diverticula were found in the recto-sigmoid colon, sigmoid colon and descending colon. Impression: - Two 1 to 2 mm polyps in the sigmoid colon and in the cecum, removed with a cold snare. Resected and retrieved. - One 5 mm polyp in the ascending colon, removed with a jumbo cold forceps. Resected and retrieved. 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 Biopsied. Tattooed. - Diverticulosis in the recto-sigmoid colon, in the sigmoid colon and in the descending colon. Recommendation: - Discharge patient to home. - Resume previous diet. - Continue present medications. - Await pathology results. - Repeat colonoscopy for surveillance based on pathology results. Procedure Code(s): --- Professional --- 58801, Colonoscopy, flexible; with removal of tumor(s), polyp(s), or other lesion(s) by snare technique 36229, 59, Colonoscopy, flexible; with biopsy, single or multiple 25028, Colonoscopy, flexible; with directed submucosal injection(s), any substance CPT copyright 2021 [employer]. All rights reserved. The codes documented in this report are preliminary and upon preservative filler machine operator review may be revised to meet current compliance requirements. Isaias Garrido DO 07/25/2024 2:37:34 PM This report has been signed electronically. Number of Addenda: 0 Note Initiated On: 07/25/2024 1:43 PM
--- NOTE | 2024-07-25 16:36 | POSTOPAN2_ITS ---
Anesthesia Postop Eval I Sum Postop Eval Completion status Anesthesia document: Postop Eval 1 completed: Yes Anesthesia Postop Eval I Summary Anesthesia Postop Eval I Summary: Anesthesia Postop Eval I: Assessment Summary Airway patent Yes 07/25/24 14:22 [email or web address] Spontaneous unlabored Yes 07/25/24 14:22 IMMIGRATION [email or web address] respirations Mental status Awake,Calm 07/25/24 14:22 IMMIGRATION [email or web address] nausea No 07/25/24 14:22 IMMIGRATION [email or web address] Vomiting No 07/25/24 14:22 IMMIGRATION [email or web address] Anesthesia Postop Eval I: Fluid Summary Crystalloid volume administer 500 07/25/24 14:22 [email or web address] (ml) Colloids volume administered ( ml) Blood Product volume administered (ml) Total IV fluid infused 500 07/25/24 14:22 IMMIGRATION [email or web address] Anesthesia Postop Eval I: Summary Notes Anesthesia Complication No 07/25/24 14:22 IMMIGRATION [email or web address] Anesthesia Complication Comment: Post-operative progress note Anesthesia: Postop Eval II Evaluation Mental status: Awake and Calm Pain Level: 0 nausea: No Vomiting: No Complications Anesthesia Complication: No
--- NOTE | 2024-07-25 16:36 | PCM.POSTANE2 ---
Anesthesia Postop Eval I Sum Postop Eval Completion status Anesthesia document: Postop Eval 1 completed: Yes Anesthesia Postop Eval I Summary Anesthesia Postop Eval I Summary: Anesthesia Postop Eval I: Assessment Summary Airway patent Yes 07/25/24 14:22 [email or web address] Spontaneous unlabored Yes 07/25/24 14:22 BANK [email or web address] respirations Mental status Awake,Calm 07/25/24 14:22 [email or web address] nausea No 07/25/24 14:22 BANK [email or web address] Vomiting No 07/25/24 14:22 [email or web address] Anesthesia Postop Eval I: Fluid Summary Crystalloid volume administer 500 07/25/24 14:22 [email or web address] (ml) Colloids volume administered ( ml) Blood Product volume administered (ml) Total IV fluid infused 500 07/25/24 14:22 [email or web address] Anesthesia Postop Eval I: Summary Notes Anesthesia Complication No 07/25/24 14:22 [email or web address] Anesthesia Complication Comment: Post-operative progress note Anesthesia: Postop Eval II Evaluation Mental status: Awake and Calm Pain Level: 0 nausea: No Vomiting: No Complications Anesthesia Complication: No
== END 2024-07-25 15:26 | disposition home or self-care (01) ==
LOC: EN 11:59 → AC 12:35
PROVIDERS: PCP Internal Medicine; Referring Provider Internal Medicine; Visit Provider Internal Medicine Gastroenterology
PROC: 0DJD8ZZ Inspection of Lower Intestinal Tract, Via Natural or Artificial Opening Endoscopic (ICD-10-PCS; CPT 45378; principal; 2024-07-25 12:55)
DX: C18.5 Malignant neoplasm of splenic flexure (principal); D12.0 Benign neoplasm of cecum; D12.2 Benign neoplasm of ascending colon; D12.5 Benign neoplasm of sigmoid colon; K57.30 Diverticulosis of large intestine without perforation or abscess without bleeding
CPT/HCPCS: 45380; 45385; 45381; 88305; 88341; 88342; A4216; A4648